=== PATIENT | female | born 2005 | race Caucasian/White ===

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

== ENCOUNTER 2024-04-16 23:29 | Emergency (ER) | payer SELFPAY ==
[2024-04-17 00:31] VITALS: TEMP 97
--- NOTE | 2024-04-17 00:54 | ERPHSYRPT ---
- History of Present Illness Time Seen by Provider: 04/17/24 00:30 Historian: patient Exam Limitations: no limitations Patient Subjective Stated Complaint: abd pain, vaginal bleeding off and on, nausea, dizziness Triage Nursing Assessment: Pt ambulated into ER without difficulty. Pt is alert and oriented x4. Pt c/o abd pain all over intermittently x2 weeks, vaginal bleeding off and on since her last period which was March 31, occassional leidy sea and dizziness but denies any vomiting. Pt states, "the first episode of abd pain happened 2 weeks ago after having sex and thought it was related to that, but it keeps occuring". Abd lg, obese with active bs x4 quad, tender on palpation. LBM 04/16/24/ Physician History: This is an obese 18-year-old white female patient of nurse practitioner Kevin who presents with infraumbilical abdominal pain and associated with vaginal spotting then bleeding that occurred at approximately 20-30 prior to arrival to the emergency department. Patient states her last menstrual period was on 03/31/2024. There is a possibility of her being . Patient denies chest pain. Patient denies shortness of breath. Patient denies nausea vomiting and diarrhea symptoms. She said no prior abdominal surgeries. Patient has no known drug allergies and takes no medications chronically. Patient does have a history of diabetes and depression. Timing/Duration: today Activities at Onset: none Quality: aching Abdominal Pain Onset Location: RLQ, LLQ, suprapubic Pain Radiation: no radiation Severity of Pain-Max: mild (Moderate) Severity of Pain-Current: mild Modifying Factors: Improves With: nothing Associated Symptoms: other (Vaginal spotting/bleeding) Previous symptoms: no prior history, no recent treatment Allergies/Adverse Reactions: No Known Drug Allergies Allergy (Verified 04/17/24 00:32) Hx Tetanus, Diphtheria Vaccination/Date Given: Yes Hx Influenza Vaccination/Date Given: No Hx Pneumococcal Vaccination/Date Given: No Travel Risk - International Travel Have you traveled outside of the country in past 3 weeks: No - Emerging Infectious Disease Are you exhibiting symptoms associated with any current EIDs: Yes Symptoms: Abdominal Pain - Review of Systems Constitutional: No Symptoms Eyes: No Symptoms Ears, Nose, & Throat: No Symptoms Respiratory: No Symptoms Cardiac: No Symptoms Abdominal/Gastrointestinal: Abdominal Pain Genitourinary Symptoms: Vaginal Bleeding Musculoskeletal: No Symptoms Skin: No Symptoms Neurological: No Symptoms Psychological: No Symptoms Endocrine: No Symptoms Hematologic/Lymphatic: No Symptoms Immunological/Allergic: No Symptoms All Other Systems: Reviewed and Negative - Past Medical History Pertinent Past Medical History: Yes Neurological History: No Pertinent History ENT History: Other Cardiac History: No Pertinent History Respiratory History: No Pertinent History Endocrine Medical History: Diabetes Type II Musculoskeletal History: No Pertinent History GI Medical History: No Pertinent History History: No Pertinent History Psycho-Social History: Depression Female Reproductive Disorders: No Pertinent History Other Medical History: freq ear infections. cyst drained to coccyx - Past Surgical History Past Surgical History: Yes Neuro Surgical History: No Pertinent History Cardiac: No Pertinent History Respiratory: No Pertinent History Gastrointestinal: No Pertinent History Genitourinary: No Pertinent History Musculoskeletal: Orthopedic Surgery Female Surgical History: No Pertinent History Other Surgical History: "TUBES IN HER EARS", left foot sugery, rt ear surgery - Female History Hx Last Menstrual Period: 03/31/24 Hx Now: (Unsure) - Social History Smoking Status: Never smoker Exposure to second hand smoke: Yes Drug Use: none Patient Lives Alone: No - Social Determinants of Health Will the patient participate in the screening: Yes Do you worry about a steady place to live?: No Do you have any problems with any of the following?: No known problems In the past 12 months,have you had to go without utilities?: No Transportation Issues: No Has anyone in your support network made you feel unsafe?: No Have you or anyone in your house had to go without enough: No - Nursing Vital Signs Nursing Vital Signs: Initial Vital Signs Temperature 97.0 F 04/17/24 00:30 Pulse Rate 94 H 04/17/24 00:30 Respiratory Rate 18 04/17/24 00:30 Blood Pressure 151/96 04/17/24 00:30 O2 Sat by Pulse Oximetry 99 04/17/24 00:30 Pain Scale Pain Intensity 0 - Physical Exam General Appearance: no apparent distress, alert, anxiety, obese Eye Exam: PERRL/EOMI, eyes nml inspection Ears, Nose, Throat Exam: normal ENT inspection, moist mucous membranes Neck Exam: normal inspection, non-tender, supple, full range of motion Respiratory Exam: normal breath sounds, lungs clear, airway intact, No chest tenderness, No respiratory distress Cardiovascular Exam: regular rate/rhythm, normal heart sounds, normal peripheral pulses Gastrointestinal/Abdomen Exam: soft, normal bowel sounds, tenderness (Infraumbilical bilateral lower quadrants and suprapubic region), guarding, No rebound Pelvic Exam: not done Rectal Exam: not done Back Exam: normal inspection, normal range of motion, No CVA tenderness, No vertebral tenderness Extremity Exam: normal inspection, normal range of motion, pelvis stable Neurologic Exam: alert, oriented x 3, cooperative, operator specialist communications II-XII nml as tested, nml cerebellar function, nml station & gait, sensation nml Skin Exam: normal color, warm, dry Lymphatic Exam: No adenopathy SpO2 Interpretation: normal SpO2: 99 O2 Delivery: Room Air - Course Nursing assessment & vital signs reviewed: Yes Ordered Tests: Active Orders 24 hr Category Date Time Status ABDOMEN AND PELVIS W/0 CONTRAS [CT] Stat Exams 04/17/24 00:38 Completed AMYLASE Stat Lab 04/17/24 01:00 Completed CBC W DIFF Stat Lab 04/17/24 01:00 Completed CMP Stat Lab 04/17/24 01:00 Completed CULTURE,URINE Stat Lab 04/17/24 00:45 Received HCG QUALITATIVE, SERUM Stat Lab 04/17/24 01:00 Completed LIPASE Stat Lab 04/17/24 01:00 Completed UA W/RFX UR CULTURE Stat Lab 04/17/24 00:45 Completed Medication Summary Discontinued Medications Generic Name Dose Route Start Last Admin Trade Name Joaquín PRN Reason Stop Dose Admin Trimethoprim/Sulfamethoxazole 1 tab 04/17/24 02:08 04/17/24 02:16 Smz/Tmp Ds Tablet 1 Tablet PO 04/17/24 02:09 1 tab STAT ONE Administration Trimethoprim/Sulfamethoxazole Confirm 04/17/24 02:15 Smz/Tmp Ds Tablet 1 Tablet Administered 04/17/24 02:16 Dose 1 tab PO .STK-MED ONE Lab/Rad Data: Laboratory Result Diagrams 04/17/24 01:00 04/17/24 01:00 Laboratory Results 04/17/24 04/17/24 04/17/24 Range/Units 01:00 01:00 01:00 WBC 12.0 H (3.98-10.04) x10^3/uL RBC 4.52 (3.93-5.22) x10^6/uL Hgb 12.9 (11.2-15.7) g/dL Hct 39.5 (34.1-44.9) % MCV 87.4 (79.4-94.8) fL MCH 28.5 (25.6-32.2) pg MCHC 32.7 (32.2-35.5) g/dL RDW 13.2 (11.7-14.4) % Plt Count 297 (182-369) x10^3/uL MPV 10.7 (9.4-12.3) fL Gran % 52.3 (34.0-71.1) % Immature Gran % (Auto) 0.3 (0.001-0.429) % Nucleat RBC Rel Count 0.0 (0.00-0.2) % Eos # (Auto) 0.17 (0.04-0.36) x10^3/uL Immature Gran # (Auto) 0.04 H (0.001-0.031) x10^3u/L Absolute Lymphs (auto) 4.48 H (1.18-3.74) x10^3/uL Absolute Monos (auto) 0.97 H (0.24-0.86) x10^3/uL Absolute Nucleated RBC 0.00 (0.00-0.012) x10^3u/L Lymphocytes % 37.5 (19.3-51.7) % Monocytes % 8.1 (4.7-12.5) % Eosinophils % 1.4 (0.7-5.8) % Basophils % 0.4 (0.1-1.2) % Absolute Granulocytes 6.25 H (1.56-6.13) x10^3/uL Basophils # 0.05 (0.01-0.08) x10^3/uL Sodium 139 (135-145) mmol/L Potassium 4.1 (3.5-5.1) mmol/L Chloride 105 (98-107) mmol/L Carbon Dioxide 24 (22-30) mmol/L Anion Gap 13.9 (5-15) MEQ/L BUN 12 (7-17) mg/dL Creatinine 0.54 (0.52-1.04) mg/dL Estimated GFR 135.9 ML/MIN Glucose 92 (74-106) mg/dL Calcium 9.4 (8.4-10.2) mg/dL Total Bilirubin 0.30 (0.2-1.3) mg/dL AST 20 (14-36) U/L ALT 20 (0-35) U/L Alkaline Phosphatase 76 (38-126) U/L Serum Total Protein 7.5 (6.3-8.2) g/dL Albumin 4.3 (3.5-5.0) g/dL Amylase 93 (30-110) U/L Lipase 91 (23-300) U/L Serum HCG, Qual NEGATIVE (NEGATIVE) Urine Color (Yellow) Urine Appearance (Clear) Urine pH (4.6-8.0) Ur Specific [place] (1.005-1.030) Urine Protein (Negative) Urine Glucose (UA) (Negative) mg/dL Urine Ketones (Negative) Urine Blood (Negative) Urine Nitrite (Negative) Urine Bilirubin (Negative) Urine Urobilinogen (0.2) mg/dL Ur Leukocyte Esterase (Negative) U Hyaline Cast (Auto) (0-2) /LPF Urine Microscopic RBC (0-5) /HPF Urine Microscopic WBC (0-5) /HPF Ur Epithelial Cells (None Seen) /HPF Urine Bacteria (None Seen) /HPF Urine Culture Reflexed (NO) 04/17/24 Range/Units 00:45 WBC (3.98-10.04) x10^3/uL RBC (3.93-5.22) x10^6/uL Hgb (11.2-15.7) g/dL Hct (34.1-44.9) % MCV (79.4-94.8) fL MCH (25.6-32.2) pg MCHC (32.2-35.5) g/dL RDW (11.7-14.4) % Plt Count (182-369) x10^3/uL MPV (9.4-12.3) fL Gran % (34.0-71.1) % Immature Gran % (Auto) (0.001-0.429) % Nucleat RBC Rel Count (0.00-0.2) % Eos # (Auto) (0.04-0.36) x10^3/uL Immature Gran # (Auto) (0.001-0.031) x10^3u/L Absolute Lymphs (auto) (1.18-3.74) x10^3/uL Absolute Monos (auto) (0.24-0.86) x10^3/uL Absolute Nucleated RBC (0.00-0.012) x10^3u/L Lymphocytes % (19.3-51.7) % Monocytes % (4.7-12.5) % Eosinophils % (0.7-5.8) % Basophils % (0.1-1.2) % Absolute Granulocytes (1.56-6.13) x10^3/uL Basophils # (0.01-0.08) x10^3/uL Sodium (135-145) mmol/L Potassium (3.5-5.1) mmol/L Chloride (98-107) mmol/L Carbon Dioxide (22-30) mmol/L Anion Gap (5-15) MEQ/L BUN (7-17) mg/dL Creatinine (0.52-1.04) mg/dL Estimated GFR ML/MIN Glucose (74-106) mg/dL Calcium (8.4-10.2) mg/dL Total Bilirubin (0.2-1.3) mg/dL AST (14-36) U/L ALT (0-35) U/L Alkaline Phosphatase (38-126) U/L Serum Total Protein (6.3-8.2) g/dL Albumin (3.5-5.0) g/dL Amylase (30-110) U/L Lipase (23-300) U/L Serum HCG, Qual (NEGATIVE) Urine Color Yellow (Yellow) Urine Appearance Cloudy A (Clear) Urine pH 5.0 (4.6-8.0) Ur Specific [place] 1.025 (1.005-1.030) Urine Protein Negative (Negative) Urine Glucose (UA) Negative (Negative) mg/dL Urine Ketones Trace A (Negative) Urine Blood Negative (Negative) Urine Nitrite Negative (Negative) Urine Bilirubin Negative (Negative) Urine Urobilinogen 0.2 (0.2) mg/dL Ur Leukocyte Esterase Small A (Negative) U Hyaline Cast (Auto) NONE SEEN (0-2) /LPF Urine Microscopic RBC 0-2 (0-5) /HPF Urine Microscopic WBC 21-50 A (0-5) /HPF Ur Epithelial Cells Moderate A (None Seen) /HPF Urine Bacteria Moderate A (None Seen) /HPF Urine Culture Reflexed YES (NO) - Progress Progress: unchanged Progress Note: 04/17/24 00:53 My medical decision making and the assignment of moderate complexity to this patient's medical issue today is based on review of the patient's past medical history, review of the patient's medication list, review of patient drug allergy list, history present illness and physical findings on examination. The workup in this patient includes CBC, CMP, urinalysis, serum test, amylase and lipase levels, CT scan of the abdomen pelvis without contrast. Differential diagnosis includes but is not limited to mittelschmerz/ovarian cyst, appendicitis, pancreatitis, other acute intra-abdominal/pelvic abnormali ties 04/17/24 02:09 Interpreted the patient's laboratory data results. Patient has a leukocytosis. Patient also has a urinary tract infection. There are no other acute, emergent medical issues based on the laboratory data results. 04/17/24 02:[address] scan of the abdomen pelvis was interpreted by the radiologist and I reviewed the impression. The impression states that the appendix is of normal diameter measuring 4 to 5 mm in diameter. It is surrounded by fat stranding and mild hyperemia in the right lower quadrant. ? Early mesenteric adenitis/inflammation of bowel 04/17/24 03:[address] Leonardo Raya, the radiologist stationary fireman at this time. I asked him to clarify whether or not he feels this patient has acute appendicitis. He states that at this point in time he is not diagnosing acute appendicitis. However there are inflammatory changes in the area of the cecum. 04/17/24 03:40 I had a long discussion with the patient and her significant other. I do not think she needs to sign out AGAINST MEDICAL ADVICE. I offered her to be placed in observation, be made n.p.o. given IV fluids and IV antibiotics and repeat labs and to be reevaluated in the hospital setting. It is not unreasonable to discharge the patient to home on a clear liquid diet to try outpatient treatment as well. Again, the radiologist is not diagnosing her with acute appendicitis at this time. Patient has decided on outpatient treatment. Patient is awake alert oriented and obviously understands her options. She will return to the emergency department if your symptoms worsen at any time or persist. Counseled pt/family regarding: lab results, diagnosis, need for follow-up, rad results Medical Desision Making - Independent Historian Additional History obtained from: Mother, Relative/friend - Diagnostic Testing Diagnostic test were ordered, analyzed, and reviewed by me: Yes Radiological Interpretation: Reviewed by me, Teleradiologist Report - Risk of complications The pt has a mod risk of morbidity or mortality based on: Need for prescription drug management - Departure Departure Disposition: Home Clinical Impression: Leukocytosis, UTI (urinary tract infection), Abdominal pain Condition: Stable Critical Care Time: No Referrals: CAROLINE STEEL NP [Primary Care Provider] - Follow up/PCP as directed Additional Instructions: Drink plenty of clear liquids. Take your antibiotics and other medication as prescribed. Call your primary care provider today, to make arrangements for follow-up appointment to be seen in the next 5 to 7 days. Return to the emergency department immediately at any time if your pain worsens. Prescriptions: Smz/Tmp Ds Tablet [Bactrim Ds Tablet] 1 udtab PO BID #14 tablet Metronidazole 500 mg [Flagyl 500 MG] 500 mg PO TID #21 tablet
[2024-04-17 01:03] LABS: Absolute Neutrophil Ct (ANC) 6.25 x10^3/uL (1.56-6.13); BASOPHIL % 0.4 % (0.1-1.2); Basophil (Absolute #) 0.05 x10^3/uL (0.01-0.08); Eosinophil % 1.4 % (0.7-5.8); Eosinophil (Absolute #) 0.17 x10^3/uL (0.04-0.36); Hematocrit 39.5 % (34.1-44.9); Hemoglobin 12.9 g/dL (11.2-15.7); IMMATURE GRAN # 0.04 x10^3u/L (0.001-0.031); IMMATURE GRAN % 0.3 % (0.001-0.429); Lymphocyte (Absolute #) 4.48 x10^3/uL (1.18-3.74); Lymphocytes % 37.5 % (19.3-51.7); Mean Cell Volume 87.4 fL (79.4-94.8); Mean Corpuscular Hemoglobin 28.5 pg (25.6-32.2); Mean Corpuscular Hgb Concent. 32.7 g/dL (32.2-35.5); Mean Platelet Volume 10.7 fL (9.4-12.3); Monocyte (Absolute #) 0.97 x10^3/uL (0.24-0.86); Monocytes % 8.1 % (4.7-12.5); Neutrophil % 52.3 % (34.0-71.1); Platelet Count 297 x10^3/uL (182-369); Red Blood Count 4.52 x10^6/uL (3.93-5.22); Red Cell Distribution Width 13.2 % (11.7-14.4)
[2024-04-17 01:26] LABS: Appearance Cloudy (Clear); Bacteria Moderate /HPF (None Seen); Bilirubin Negative (Negative); Blood Negative (Negative); Epithelial Cells Moderate /HPF (None Seen); Glucose, Urine Negative (Negative); Hyaline Casts NONE SEEN /LPF (0-2); Ketones Trace (Negative); Leukocyte Esterase Small (Negative); Nitrite Negative (Negative); Protein,Urine Dip Negative (Negative); RBC 0-2 /HPF (0-5); Specific Gravity 1.025 (1.005-1.030); Urobilinogen 0.2 mg/dL (0.2); WBC 21-50 /HPF (0-5)
[2024-04-17 01:27] LABS: ALBUMIN 4.3 g/dL (3.5-5.0); ANION GAP 13.9 MEQ/L (5-15); BILIRUBIN,TOTAL 0.3 mg/dL (0.2-1.3); Calcium 9.4 mg/dL (8.4-10.2); Creatinine 1 0.54 mg/dL (0.52-1.04); EST GLOMERULAR FILTRATION RATE 135.9 ML/MIN; HCG SERUM TEST NEGATIVE (NEGATIVE); Potassium 4.1 mmol/L (3.5-5.1); Total Protein 7.5 g/dL (6.3-8.2)
[2024-04-17 01:30] LABS: ADD URINE CULTURE? YES (NO)
[2024-04-17] MEDS ORDERED: BACTRIM DS TABLET PO ONE (02:15)
[2024-04-17] MEDS: BACTRIM DS TABLET PO ONE (02:16)
--- NOTE | 2024-04-17 02:50 | XRAY ---
CLINICAL HISTORY: Infraumbilical abdominal pain COMPARISON: None. TECHNIQUE: CT of the abdomen and pelvis was performed with axial images as well as sagittal and coronal reconstruction images without intravenous contrast. CTDI: 18.72 mGy, DLP 1098.90 mGy*cm. One of the following dose-reduction techniques was utilized for this exam. Automated exposure control, adjustment of the mA and/or kV according to patient size, and use of iterative reconstruction. FINDINGS: The appendix is of normal diameter measuring 4-5 mm surrounded by fat standings and mild hyperemia in the right lower quadrant. The liver is normal in size and measures 13.3 cm. No focal or diffuse parenchymal abnormality. The portal vein, intrahepatic biliary radicals, and the bile ducts are normal. The gallbladder is normal. No pericholecystic collection or radio-dense calculi in the gall bladder. The spleen, pancreas, and adrenal glands are unremarkable. The kidneys are unremarkable. They are normal in size and shape. No calculi or hydronephrosis. The ascending colon, the transverse colon, the descending colon, and the visualized small bowel loops are unremarkable. Pelvis: The urinary bladder is unremarkable. The rectosigmoid colon is unremarkable. A few specks of air are seen in the vagina. otherwise uterus and adnexal region appear within normal limits. The osseous structures in the pelvis, lower rib cage, and lumbar spine show no abnormality. No lytic or sclerotic bone lesions. IMPRESSION: 1. The appendix is of normal diameter measuring 4-5 mm surrounded by fat standings and mild hyperemia in the right lower quadrant. advise clinical correlation to rule out the possibility of early mesenteric adenitis/inflammation of the bowel. 2. A few specks of air are seen in the vagina. otherwise uterus and adnexal region appear within normal limits. Advised ultrasound and clinical examination for further evaluation if clinically warranted. 3. The rest of the scan is within normal limits. [facility] ER was called at [phone] at 1:42 AM [facility]OSI[facility] K[employer]ITTER, 04/17/2024 and results were verbally communicated to Dr. Ramirez. Electronically Signed by: Leonardo Raya MD. (04/17/2024 02:47:18 EDT)
[2024-04-17] MEDS: Flagyl 500 MG PO ONE (03:49)
[2024-04-17] MEDS ORDERED: Flagyl 500 MG ONE (03:49)
[2024-04-17 04:04] VITALS: BP 132/74; PULSE 83; RESP 17; O2SAT 97
== END 2024-04-17 04:04 | disposition home or self-care (01) ==
LOC: ED 23:29
DX: N39.0 Urinary tract infection, site not specified (principal); D72.829 Elevated white blood cell count, unspecified; R10.33 Periumbilical pain; E11.9 Type 2 diabetes mellitus without complications; Z79.899 Other long term (current) drug therapy
CPT/HCPCS: 36415; 74176; 80053; 81001; 82150; 83690; 84703; 85025; 87086; 99284; A9270-GY

== ENCOUNTER 2024-04-22 00:35 | Emergency (ER) | payer SELFPAY ==
[2024-04-22 01:04] VITALS: BP 126/70; PULSE 93; RESP 16; TEMP 97.6; O2SAT 98
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
[2024-04-22] MEDS: TORAdol 10 MG TABLET PO ONE (01:56)
[2024-04-22] MEDS: NEURONTIN PO ONE (01:56)
[2024-04-22] MEDS: TORAdol 10 MG TABLET PO SCH (02:15)
[2024-04-22] MEDS: NEURONTIN PO SCH (02:16)
--- NOTE | 2024-04-22 07:31 | XRAY ---
Indication: Pain following injury. Comparison: November 29, 2019 3 view left ankle again demonstrates normal bones, articulation, and soft tissues.
--- NOTE | 2024-04-22 07:31 | XRAY ---
Indication: Pain following injury. Comparison: November 29, 2019 3 nonweightbearing views left foot obtained. Again no bony, articular, or soft tissue abnormalities.
== END 2024-04-22 02:15 | disposition home or self-care (01) ==
LOC: ED 00:35
DX: M79.672 Pain in left foot (principal); M79.89 Other specified soft tissue disorders; M79.2 Neuralgia and neuritis, unspecified; R20.3 Hyperesthesia; E11.9 Type 2 diabetes mellitus without complications
CPT/HCPCS: 73610; 73630; 99283; A9270-GY

== ENCOUNTER 2024-06-22 16:51 | Emergency (ER) | payer OTHER ==
[2024-06-22 18:46] VITALS: TEMP 98.4
--- NOTE | 2024-06-22 19:32 | ERPHSYRPT ---
- History of Present Illness Time Seen by Provider: 06/22/24 19:10 Source: patient, family Exam Limitations: no limitations Patient Subjective Stated Complaint: pt had surgery on her left foot a couple of years ago and dropped something on her surgery site about 3 months ago and then about 3 weeks ago she began having numbness and pain to her left foot that radiated up her leg to just below the knee, pt called her old surgeon and he told her to come to the ER to see if she has a blood clot Triage Nursing Assessment: Pt was brought to the ER by her sister, zaid larson, rates pain as 7/10, warmth to the left lower leg, pt's big toe is a drop toe, pulses normal, skin normal, doesn't appear to be in any distress Physician History: This 18-year-old white female patient was brought to the emergency department at approximately 1810. Primary complaint is numbness and tenderness to the left foot and left leg below the knee circumferentially. The patient had a left foot surgery approximately 2 years ago. Approximate 3 months ago she dropped a heavy object onto the surgical site on the dorsal aspect of her left foot. Approxi-3 weeks ago she noticed numbness to the left foot, dorsal aspect and circumferential pain from that site radiating cranially to below the knee. Patient does not have a cough. She does not have a mopped assist, she does not have chest pain. She is not short of breath. She did call her foot surgeon and they encouraged her to come to the emergency department to be evaluated for possibility of having a DVT. Patient has not had any acute traumatic injury or fever. Patient has no known bleeding or clotting disorders in the family. Method of Injury: other (No new injury) Occurred: other Quality: intermittent, other (Sharp pain and numbness) Severity of Pain-Max: mild (To moderate) Severity of Pain-Current: mild Lower Extremities Pain: leg: left (Although the knee circumferentially), foot: left, ankle: left Modifying Factors: Improves With: movement Associated Symptoms: none Allergies/Adverse Reactions: No Known Drug Allergies Allergy (Verified 06/22/24 18:41) Home Medications: No Reportable Medications [No Reported Medications] 06/22/24 [History] Hx Tetanus, Diphtheria Vaccination/Date Given: Yes Hx Influenza Vaccination/Date Given: No Hx Pneumococcal Vaccination/Date Given: No Travel Risk - International Travel Have you traveled outside of the country in past 3 weeks: No - Emerging Infectious Disease Are you exhibiting symptoms associated with any current EIDs: No Symptoms: Abdominal Pain - Review of Systems Constitutional: No Symptoms Eyes: No Symptoms Ears, Nose, & Throat: No Symptoms Respiratory: No Symptoms Cardiac: No Symptoms Abdominal/Gastrointestinal: No Symptoms Genitourinary Symptoms: No Symptoms Musculoskeletal: Other (Pain and numbness left lower extremity below the knee. Symptoms began at the left foot and shoot cranially and circumferentially lower leg below the knee) Neurological: No Symptoms Psychological: No Symptoms Endocrine: No Symptoms Hematologic/Lymphatic: No Symptoms Immunological/Allergic: No Symptoms All Other Systems: Reviewed and Negative - Past Medical History Pertinent Past Medical History: Yes Neurological History: No Pertinent History ENT History: Other Cardiac History: No Pertinent History Respiratory History: No Pertinent History Endocrine Medical History: Diabetes Type II Musculoskeletal History: No Pertinent History GI Medical History: No Pertinent History History: No Pertinent History Psycho-Social History: Depression Female Reproductive Disorders: No Pertinent History Other Medical History: freq ear infections. cyst drained to coccyx - Past Surgical History Past Surgical History: Yes Neuro Surgical History: No Pertinent History Cardiac: No Pertinent History Respiratory: No Pertinent History Gastrointestinal: No Pertinent History Genitourinary: No Pertinent History Musculoskeletal: Orthopedic Surgery Female Surgical History: No Pertinent History Other Surgical History: "TUBES IN HER EARS", left foot sugery, rt ear surgery - Female History Hx Last Menstrual Period: 06/18/2024 Hx Now: No - Social History Smoking Status: Never smoker Exposure to second hand smoke: Yes Drug Use: none Patient Lives Alone: No - Social Determinants of Health Will the patient participate in the screening: Yes Do you worry about a steady place to live?: No Do you have any problems with any of the following?: No known problems In the past 12 months,have you had to go without utilities?: No Transportation Issues: No Has anyone in your support network made you feel unsafe?: No Have you or anyone in your house had to go without enough: No - Nursing Vital Signs Nursing Vital Signs: Initial Vital Signs Temperature 98.4 F 06/22/24 18:32 Pulse Rate 97 H 06/22/24 18:32 Blood Pressure 114/80 06/22/24 18:32 O2 Sat by Pulse Oximetry 99 06/22/24 18:32 Pain Scale Pain Intensity 7 - Physical Exam General Appearance: no apparent distress, alert, anxiety, obese Eyes, Ears, Nose, Throat Exam: normal ENT inspection, moist mucous membranes Neck Exam: normal inspection, non-tender, supple, full range of motion Cardiovascular/Respiratory Exam: chest non-tender, no respiratory distress Gastrointestinal/Abdominal Exam: non-tender Back Exam: normal inspection, normal range of motion, No CVA tenderness, No vertebral tenderness Hips Exam: bilateral: non-tender, normal inspection, normal range of motion, no evidence of injury Legs Exam: bilateral leg: non-tender, normal inspection, normal range of motion, no evidence of injury Knees Exam: bilateral knee: non-tender, normal inspection, normal range of motion, no evidence of injury Ankle Exam: right ankle: non-tender, left ankle: soft tissue tenderness (Circumferentially with associated numbness left), other (Symptoms below the knee), bilateral ankle: normal inspection, normal range of motion, no evidence of injury Foot Exam: right foot: non-tender, left foot: soft tissue tenderness (Low the knee circumferentially with associated numbness), bilateral foot: normal inspection, normal range of motion, no evidence of injury Neuro/Tendon Exam: normal sensation, normal motor functions, normal tendon functions, no evidence tendon injury Mental Status Exam: alert, oriented x 3, cooperative Skin Exam: normal color, warm (Strong pedal pulses left foot), dry SpO2 Interpretation: normal SpO2: 99 O2 Delivery: Room Air - Course Nursing assessment & vital signs reviewed: Yes Ordered Tests: Active Orders 24 hr Category Date Time Status D-DIMER QUANTITATIVE Stat Lab 06/22/24 19:35 Completed Lab/Rad Data: Laboratory Results 06/22/24 Range/Units 19:35 D-Dimer 0.27 (0.0-0.50) mg/L - Progress Progress Note: 06/22/24 19:34 My medical decision making and the assignment of low complexity to this patient's medical issue today is based on review of the patient's past medical history, review the patient's medication list, reviewed patient drug allergy list, history present illness and physical findings on examination. The workup in this patient includes obtaining a D-dimer screening test. If this is negative we will discharge the patient to home. If it is significantly positive, we will call and neurology technologist to perform a venous Doppler of the left lower extremity. Differential diagnosis includes but is not limited to nerve pain, muscle skeletal pain, DVT 06/22/24 20:10 Interpreted the laboratory data result. Based on the laboratory data results and also based on the patient's presentation and symptomatology, the patient does not have evidence of any acute, emergent medical issue. Her D-dimer is within normal limits. I have low suspicion that she has a DVT. Counseled pt/family regarding: lab results Medical Desision Making - Independent Historian Additional History obtained from: Father - Diagnostic Testing Diagnostic test were ordered, analyzed, and reviewed by me: Yes - Risk of complications Minimal Risk: Minimal risk of morbidity - Departure Departure Disposition: Home Clinical Impression: Pain in left lower leg, Left foot pain Condition: Stable Critical Care Time: No Referrals: CAROLINE STEEL NP [Primary Care Provider] - Follow up/PCP as directed Additional Instructions: May use Tylenol and ibuprofen for pain control if there are no contraindications to do so. Call your primary care provider on 06/25/2024, to make arrangements for follow-up appointment for further evaluation and management.
[2024-06-22 20:10] VITALS: BP 131/74
[2024-06-22 20:20] VITALS: PULSE 94; O2SAT 100
== END 2024-06-22 20:22 | disposition home or self-care (01) ==
LOC: ED 16:51
DX: M79.672 Pain in left foot (principal); R20.0 Anesthesia of skin; M79.605 Pain in left leg
CPT/HCPCS: 36415; 85379; 99282

== ENCOUNTER 2024-07-21 02:10 | Emergency (ER) | payer OTHER ==
[2024-07-21 02:27] VITALS: RESP 18; TEMP 97.7; O2SAT 99
--- NOTE | 2024-07-21 02:39 | ERPHSYRPT ---
- History of Present Illness Time Seen by Provider: 07/21/24 02:30 Source: patient Exam Limitations: no limitations Patient Subjective Stated Complaint: pt states that she had an injury to her foot 8 years ago and has had issues with it since. pt states that she jumped out of bed tonight and is having pain and spasms to left foot Triage Nursing Assessment: pt came into the er via wheelchair; pt transferred self to cot; pt is axo x4; c/o left foot pain; pt states 9/10 pain to left foot; left great toe contracted down; pt states spasms to 2nd toe on left foot; strong left pedal pulse; good cap refill to LLE; skin PDW; no respiratory distress present; vitals wnl Physician History: This is a morbidly obese 18-year-old female who has had chronic problems with her left foot and sees a mental health program manager in [facility]. She states that she jumped out of a bed a month ago and ever since that time she is unable to keep her big toe of her left foot extended. It remains in a flexed position. It is becoming concerning for her. She had an appointment to see that mental health program manager a couple of weeks ago but could not make the appointment because of some other medical issues going on in the family. It is interesting to me that I am seeing this patient in our emergency department as a patient and accompanying patient's/family members and she never mentioned any thing about this issue. There is been no new injuries in the last month per her report. Method of Injury: other (Patient jumped out of the bed and landed on her left foot) Occurred: other (Occurred 1 month ago) Severity of Pain-Max: mild Severity of Pain-Current: mild Lower Extremities Pain: 1st toe: left Associated Symptoms: none Allergies/Adverse Reactions: No Known Drug Allergies Allergy (Verified 07/21/24 02:17) Home Medications: Buspirone HCl 5 mg [Buspar 5 mg] 10 mg PO BID 07/21/24 [History] Clonidine HCl 0.1 mg [Clonidine 0.1 mg Tablet] 0.1 mg PO HS 07/21/24 [History] Prazosin HCl 1 mg PO HS 07/21/24 [History] Hx Tetanus, Diphtheria Vaccination/Date Given: Yes Hx Influenza Vaccination/Date Given: No Hx Pneumococcal Vaccination/Date Given: No Immunizations Up to Date: Yes Travel Risk - International Travel Have you traveled outside of the country in past 3 weeks: No - Emerging Infectious Disease Are you exhibiting symptoms associated with any current EIDs: No Symptoms: Abdominal Pain - Review of Systems Constitutional: No Symptoms Eyes: No Symptoms Ears, Nose, & Throat: No Symptoms Respiratory: No Symptoms Cardiac: No Symptoms Abdominal/Gastrointestinal: No Symptoms Genitourinary Symptoms: No Symptoms Musculoskeletal: Injury (Foot first toe) Skin: No Symptoms Neurological: No Symptoms Psychological: No Symptoms Endocrine: No Symptoms Hematologic/Lymphatic: No Symptoms Immunological/Allergic: No Symptoms All Other Systems: Reviewed and Negative - Past Medical History Pertinent Past Medical History: Yes Neurological History: No Pertinent History ENT History: Other Cardiac History: No Pertinent History Respiratory History: No Pertinent History Endocrine Medical History: Diabetes Type II Musculoskeletal History: No Pertinent History GI Medical History: No Pertinent History History: No Pertinent History Psycho-Social History: Depression Female Reproductive Disorders: No Pertinent History Other Medical History: freq ear infections. cyst drained to coccyx - Past Surgical History Past Surgical History: Yes Neuro Surgical History: No Pertinent History Cardiac: No Pertinent History Respiratory: No Pertinent History Gastrointestinal: No Pertinent History Genitourinary: No Pertinent History Musculoskeletal: Orthopedic Surgery Female Surgical History: No Pertinent History Other Surgical History: "TUBES IN HER EARS", left foot sugery, rt ear surgery - Female History Hx Last Menstrual Period: 07/17/24 Hx Now: No - Social History Smoking Status: Never smoker Exposure to second hand smoke: Yes Drug Use: none Patient Lives Alone: No - Social Determinants of Health Will the patient participate in the screening: Yes Do you worry about a steady place to live?: No Do you have any problems with any of the following?: No known problems In the past 12 months,have you had to go without utilities?: No Transportation Issues: No Has anyone in your support network made you feel unsafe?: No Have you or anyone in your house had to go without enough: No - Nursing Vital Signs Nursing Vital Signs: Initial Vital Signs Temperature 97.7 F 07/21/24 02:19 Pulse Rate 92 H 07/21/24 02:19 Respiratory Rate 18 07/21/24 02:19 Blood Pressure 122/77 07/21/24 02:19 O2 Sat by Pulse Oximetry 99 07/21/24 02:19 Pain Scale Pain Intensity 9 - Physical Exam General Appearance: no apparent distress, alert, anxiety, obese Eyes, Ears, Nose, Throat Exam: normal ENT inspection, moist mucous membranes Neck Exam: normal inspection, non-tender, supple, full range of motion Cardiovascular/Respiratory Exam: chest non-tender, no respiratory distress Gastrointestinal/Abdominal Exam: non-tender Back Exam: normal inspection, normal range of motion, No CVA tenderness, No vertebral tenderness Hips Exam: bilateral: non-tender, normal inspection, normal range of motion, no evidence of injury Legs Exam: bilateral leg: non-tender, normal inspection, normal range of motion, no evidence of injury Knees Exam: bilateral knee: non-tender, normal inspection, normal range of motion, no evidence of injury Ankle Exam: bilateral ankle: non-tender, normal inspection, normal range of motion, no evidence of injury Foot Exam: right foot: non-tender, normal inspection, normal range of motion, left foot: limited range of motion (Unable to actively extend first toe), soft tissue tenderness (Mild tenderness first toe), other (First toe remains in flexed position), bilateral foot: no evidence of injury Neuro/Tendon Exam: normal sensation, responds to pain, tendon function deficit (Questionable extensor tendon function left first toe) Mental Status Exam: alert, oriented x 3, cooperative Skin Exam: normal color, warm, dry SpO2 Interpretation: normal SpO2: 99 O2 Delivery: Room Air Ordered Tests: Active Orders 24 hr Category Date Time Status FOOT (MINIMUM 3 VIEWS) Stat Exams 07/21/24 02:28 Taken - Progress Progress: unchanged Progress Note: 07/21/24 03:41 My medical decision making and the assignment of low complexity to this patient's medical issue today is based on review of the patient's past medical history, review of the patient's medication list, reviewed patient drug allergy list, history present illness and physical findings on examination. The workup and the patient includes x-ray of the patient's left foot. I interpreted the preliminary report of the x-ray of the left foot. There is no evidence of any acute fracture or dislocation. Counseled pt/family regarding: diagnosis, need for follow-up, rad results Medical Desision Making - Independent Historian Additional History obtained from: Relative/friend - Risk of complications Low Risk: Low risk of morbidity from additional dx testing or treatment - Departure Departure Disposition: Home Clinical Impression: Pain of left great toe Condition: Stable Critical Care Time: No Referrals: CAROLINE STEEL NP [Primary Care Provider] - Follow up/PCP as directed Additional Instructions: If there are no contraindications, use Tylenol and ibuprofen for pain control. May also apply ice pack to the tender area 3 times a day for the next 48 hours. Follow-up with your mental health program manager on 07/23/2024. Other options include following up with our mental health program manager, Dr. Fry, by phone, 07/23/2024 to make a follow-up appointment to be seen next week. And finally you can be seen as a walk in patient at the [facility] orthopedic clinic on 07/23/2024 between 8 AM and 10 AM. You do not need an appointment.
[2024-07-21 03:58] VITALS: BP 102/70; PULSE 90
--- NOTE | 2024-07-21 08:04 | XRAY ---
Indication: Pain. Deformity. Comparison: November 29, 2019 and April 22, 2024. 3 nonweight bearing views left foot obtained. Again no bony, articular, or soft tissue abnormalities.
== END 2024-07-21 03:58 | disposition home or self-care (01) ==
LOC: ED 02:10
DX: M79.675 Pain in left toe(s) (principal); E11.9 Type 2 diabetes mellitus without complications; Z79.899 Other long term (current) drug therapy
CPT/HCPCS: 73630; 99282

== ENCOUNTER 2024-08-28 11:00 | Emergency (ER) | payer OTHER ==
[2024-08-28 11:35] VITALS: RESP 18; TEMP 97.5
[2024-08-28 12:18] VITALS: O2SAT 98
[2024-08-28 12:34] LABS: HCG URINE TEST NEGATIVE (NEGATIVE)
[2024-08-28 12:52] LABS: Appearance Cloudy (Clear); Bilirubin Negative (Negative); Blood Negative (Negative); Epithelial Cells Moderate /HPF (None Seen); Glucose, Urine Negative (Negative); Hyaline Casts NONE SEEN /LPF (0-2); Ketones Negative (Negative); Leukocyte Esterase Large (Negative); Nitrite Negative (Negative); Ph 5.5 (4.6-8.0); Protein,Urine Dip Negative (Negative); RBC 0-2 /HPF (0-5); Specific Gravity 1.025 (1.005-1.030); Urobilinogen 0.2 mg/dL (0.2)
[2024-08-28 12:53] LABS: Bacteria Moderate /HPF (None Seen)
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
[2024-08-28] MEDS ORDERED: Macrobid 100MG Capsule ONE (14:16)
[2024-08-28] MEDS: Macrobid 100MG Capsule PO ONE (14:17)
[2024-08-28] MEDS ORDERED: TORAdol 30 mg Injection ONE (14:18)
[2024-08-28] MEDS: TORAdol 30 mg Injection IM ONE (14:19)
[2024-08-28 14:28] VITALS: BP 135/86; PULSE 97
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
== END 2024-08-28 14:51 | disposition home or self-care (01) ==
LOC: ED 11:00
DX: Z04.1 Encounter for examination and observation following transport accident (principal); S16.1XXA Strain of muscle, fascia and tendon at neck level, initial encounter; S00.531A Contusion of lip, initial encounter; V53.5XXA Driver of pick-up truck or van injured in collision with car, pick-up truck or van in traffic accident, initial encounter; N39.0 Urinary tract infection, site not specified; R51.9 Headache, unspecified; R07.89 Other chest pain; E11.9 Type 2 diabetes mellitus without complications; Z79.899 Other long term (current) drug therapy
CPT/HCPCS: 70450; 70486; 71250; 72125; 81001; 81025; 87086; 96372; 99285; J1885; A9270-GY

== ENCOUNTER 2025-06-13 13:06 | Observation (INO) | payer OTHER ==
[2025-06-13 14:19] LABS: Glucose, Urine Negative (Negative); Protein,Urine Dip 30 (Negative); RBC 0-2 /HPF (0-5); WBC 0-2 /HPF (0-5)
== END 2025-06-13 15:40 | disposition home or self-care (01) ==
LOC: MED SURG 13:06
PROVIDERS: ADMIT Family Medicine; ATTEND Family Medicine
DX: Z34.02 Encounter for supervision of normal first pregnancy, second trimester (principal); Z3A.20 20 weeks gestation of pregnancy
CPT/HCPCS: 81001; G0378; G0379